=== PATIENT | female | born 1970 | race African-American/Black ===

== ENCOUNTER 2016-09-05 21:13 | Emergency (ER) | payer OTHER ==
[~2016-09-05] VITALS: Ht 167.6 cm; Wt 87.2 kg
[2016-09-05] MEDS ORDERED: HYDROCODONE/ACETAMINOPHEN 10/325MG TABLET PO ONE (23:30)
[2016-09-05 23:46] VITALS: BP 122/82
[2016-09-06] MEDS ORDERED: DIAZEPAM 5 MG TABLET PO ONE (00:45)
== END 2016-09-06 00:59 | disposition home or self-care (01) ==
LOC: ER 23:28
DX: M70.812 Other soft tissue disorders related to use, overuse and pressure, left shoulder (principal); I10 Essential (primary) hypertension; Y93.A1 Activity, exercise machines primarily for cardiorespiratory conditioning
CPT/HCPCS: 73030; 81025; 99284; A4565

== ENCOUNTER 2016-09-06 16:34 | Emergency (ER) | payer OTHER ==
[~2016-09-06] VITALS: Ht 167.6 cm; Wt 100.0 kg
[2016-09-06 17:05] VITALS: BP 120/80
== END 2016-09-06 23:52 | disposition left against medical advice (07) ==
LOC: ER 16:34
DX: Z53.21 Procedure and treatment not carried out due to patient leaving prior to being seen by health care provider (principal)

== ENCOUNTER 2021-01-29 19:08 | Emergency (ER) | payer OTHER ==
[~2021-01-29] VITALS: Ht 172.7 cm; Wt 92.0 kg
[2021-01-29 19:15] VITALS: BP 157/112
[2021-01-29] MEDS ORDERED: KETOROLAC 60MG/2ML VIAL IM ONE (21:15)
[2021-01-29] MEDS ORDERED: CYCLOBENZAPRINE 10MG TABLET PO ONE (21:15)
[2021-01-29] MEDS ORDERED: IBUP-2029 MT (21:51)
[2021-01-29] MEDS ORDERED: CYCL10TA7 MT (21:52)
== END 2021-01-29 23:19 | disposition home or self-care (01) ==
LOC: ER 19:08
DX: S49.81XA Other specified injuries of right shoulder and upper arm, initial encounter (principal); I10 Essential (primary) hypertension; X58.XXXA Exposure to other specified factors, initial encounter; Y93.89 Activity, other specified; Y92.89 Other specified places as the place of occurrence of the external cause
CPT/HCPCS: 73030; 96372; 99283; J1885; A4565